=== PATIENT | female | born 1955 | race Caucasian/White ===

== ENCOUNTER 2020-10-13 16:11 | Outpatient (CLI) | payer OTHER, SELFPAY ==
--- NOTE | 2020-10-13 16:30 | MR_ITS ---
WS: [id number] MRI THORACIC SPINE WITHOUT CONTRAST TECHNIQUE: Sagittal T1, T2 and STIR imaging. Axial T2 imaging. Noncontrast imaging obtained. CLINICAL INFORMATION: THORACIC PAIN, LOW BACK PAIN COMPARISON: None. FINDINGS: Mild thoracic curve. Mild thoracic kyphosis. No acute compression. No high-grade central canal stenos is. Cord signal is normal. Mild disc bulging with small central protrusions T12-L1 and L1-L2 with sli ght effacement of the ventral thecal sac. Moderate facet arthropathy lower thoracic spine. Mild to moderate foraminal narrowing right T10-11 and right L1-2. Normal caliber thoracic aorta. Part ially evaluated right hepatic cyst. MR/MR thoracic spin wo con* [id number] IMPRESSION: 1. Mild thoracic curve. Mild thoracic kyphosis. No high-grade central canal na rrowing. 2. Cord signal is normal. 3. Small disc protrusions in the lower thoracic and upper lumbar spine more pr ominent at T12-L1 and L1-L2. Spinal canal is patent. 4. Mild to moderate foraminal narrowing right T10-11 and right L1-2
--- NOTE | 2020-10-13 16:37 | MR_ITS ---
WS: [id number] MRI LUMBAR SPINE NONCONTRAST TECHNIQUE: Sagittal T1, T2 and STIR imaging. Axial T1 and T2 imaging. CLINICAL INFORMATION: THORACIC PAIN, LOW BACK PAIN COMPARISON: None. FINDINGS: Mild lumbar curve. No acute compression. No high-grade central canal stenosis. L1-L2: Mild disc bulging with a small shallow central protrusion. Narrowing subarticular recess bilat erally. Mild facet arthropathy. Mild right greater than left foraminal narrowing. L2-L3: Mild annular bulging with narrowing of the subarticular recess bilaterally. Moderate facet art hropathy. Spinal canal and foramen are patent. L3-L4: Mild annular bulging. Slight effacement of the ventral thecal sac. Spinal canal is patent. For amen are patent. Mild facet arthropathy. L4-L5: Mild annular bulging with slight narrowing of the subarticular recess bilaterally. Encroachmen t traversing L5 nerve roots. Mild right and no significant left foraminal narrowing. L5-S1: Mild disc bulging with osteophytic ridging. Disc desiccation. Mild right greater than left for aminal narrowing. Tiny bilateral renal cysts. Visualized pelvic bony structures: Normal. Paravertebral soft tissues: Normal. MR/MR lumbar spine wo con* [id number] IMPRESSION: 1. Mild lumbar curve. No acute compression. No high-grade central canal stenos is. 2. Shallow broad-based central protrusion L1-2 with slight impingement elayne ing L2 nerve roots bilaterally in the subarticular recess. Mild bilateral diamante inal narrowing. 3. Narrowing of the right L2-3 subarticular recess. 4. Mild disc bulging L4-5 with impingement right subarticular recess and trave rsing right L5 nerve root. Mild right L4-5 foraminal narrowing. 5. Mild right L5-S1 bony foraminal narrowing. 6. Mild to moderate facet arthropathy L4-5.
== END 2020-10-13 16:12 | disposition home or self-care (01) ==
LOC: RADSHAW 16:16
PROVIDERS: PCP Nurse Practitioner; Visit Provider Nurse Practitioner
DX: M47.816 Spondylosis without myelopathy or radiculopathy, lumbar region (principal); M51.26 Other intervertebral disc displacement, lumbar region; M51.24 Other intervertebral disc displacement, thoracic region; M40.294 Other kyphosis, thoracic region
CPT/HCPCS: 72146; 72148

== ENCOUNTER → 2021-09-06 13:48 | Outpatient (BNVA) | payer OTHER, SELFPAY | PROVIDERS: PCP Nurse Practitioner; Referring Provider Nurse Practitioner; Visit Provider Specialist | DX: M67.442 Ganglion, left hand (principal) | CPT/HCPCS: 73130; 99203 ==

== ENCOUNTER 2024-03-21 07:57 | Outpatient (CLI) | payer OTHER, SELFPAY ==
--- NOTE | 2024-03-21 08:00 | US_ITS ---
WS: [id number] RIGHT UPPER QUADRANT ULTRASOUND HISTORY: RIGHT UPPER QUADRANT PAIN COMPARISON: 10/18/2013, CT abdomen 10/18/2013 Liver: 15.7 cm in length. Normal size liver. Hyperechoic nodule in the posterior liver towards the di aphragm measures 1.2 x 0.9 x 0.9 cm. No increased vascularity. No intrahepatic bile duct dilatation. There is an additional area of heterogeneity in the RIGHT lobe of the liver which needs to be further evaluated. Additional area of heterogeneity in the RIGHT lobe of the liver anterior to the kidney. T his heterogeneous mass measures 4.7 x 7.0 x 5.5 cm. There is an separate lobulated component which ex tends more inferiorly measuring 4.3 x 4.8 x 3.6 cm. Portal Vein: Normal hepatopetal flow with monophasic waveform. Gallbladder: Normally distended gallbladder with no stones or wall thickening. CBD: 0.2 cm Pancreas: Atrophy. No mass. Right kidney: 9.4 cm in length. Normal size and echogenicity. No hydronephrosis or mass. Aorta and IVC: Unremarkable abdominal aorta and IVC. No ascites. US/US abdomen limited [id number] IMPRESSION: 1. Hepatic masses. This may be 2 separate hepatic masses or a contiguous lobu lated mass. Masses are within the RIGHT lobe of the liver with the largest comp onent measuring 4.7 x 7.0 x 5.5 cm. Smaller masslike component measures 4.3 x 4 .8 x 3.6 cm. Highly suspicious for primary or metastatic hepatocellular disease . Recommend CT evaluation. CT evaluation should be with hepatic mass protocol. 2. Negative gallbladder.
== END 2024-03-21 07:58 | disposition home or self-care (01) ==
LOC: RAD 07:57
PROVIDERS: PCP Nurse Practitioner; Visit Provider Nurse Practitioner
DX: R10.11 Right upper quadrant pain (principal); R93.2 Abnormal findings on diagnostic imaging of liver and biliary tract
CPT/HCPCS: 76705

== ENCOUNTER 2024-04-03 13:35 | Outpatient (CLI) | payer OTHER, SELFPAY ==
--- NOTE | 2024-04-03 13:40 | CT_ITS ---
WS: [id number] CT ABDOMEN WITH AND WITHOUT CONTRAST HISTORY: HEPATIC MASSES Contiguous single phase 5 mm axial imaging performed to the abdomen. Oral contrast has been provided. Coronal and sagittal reformats are submitted. All CT scans at [facility] use at least one of these dose optimization techniques: automated exposure control; mA and/or kV adjustment per patient size (includes targeted exams where dose is matched to clinical indication); or iterative reconstruct ion. IV CONTRAST: Omnipaque 350; 100 mL IV. Oral contrast: No DLP: 692.90 mGy.cm COMPARISON: 10/18/2013, ultrasound 03/21/2024 Lower thorax: Linear areas of scarring at the lung bases. Heart is normal size. Small hiatal hernia. Liver/biliary system: Abnormal RIGHT lobe of the liver. There is a large lobulated mass displacing th e vessels in the RIGHT lobe of the liver. This may be two separate masses which are inseparable. The entire mass measures 7.8 x 6.5 x 7.7 cm. Mass is of low attenuation on the noncontrast study. On ramsey y arterial phase imaging there is peripheral enhancement. In some portions of the mass there is perip heral scattered puddling and additional more focal confluent intense enhancement within a portion of the lesion. There is partial filling in on the delayed imaging. The center appears necrotic. There is also central scarring. There is an additional smaller 0.7 mm lesion which does not nearly completel y fill in on delayed imaging. Gallbladder: Slightly contracted gallbladder. Pancreas: Normal size pancreas and pancreatic duct. No adjacent inflammation. Spleen: Normal size spleen. No mass or infarct. Adrenal glands: Normal. Right kidney: RIGHT kidney is being displaced medially by the RIGHT hepatic mass. No renal obstructio n. Left kidney: Cortical cyst upper pole. Otherwise negative. Aorta: Mild atherosclerosis with no aneurysm. Lymphadenopathy: None. Free fluid: None. GI tract: Stomach is mildly distended with fluid. Constipation within the visualized colon through th e abdomen. Abdominal wall: Unremarkable abdominal wall. No hernia. Visualized osseous structures: Unremarkable. CT/CT abdomen wo/w con [id number] IMPRESSION: 1. Large heterogeneous mass with peripheral enhancement in the RIGHT lobe of t he liver. This may be two adjacent masses which are now confluent. The entire m ass measures 7.8 x 6.5 x 7.7 cm. There is variable, pronounced peripheral enhan cement with central necrosis and a central scar. There is an additional smalle r mass towards the diaphragm which is subcentimeter and does not fill in on del ayed imaging. Differential includes large HCC, metastatic site or atypical cave rnous hemangioma. Liver biopsy may be necessary to confirm the diagnosis. Liver biopsy should be performed by interventional radiology. 2. No ascites or adenopathy. 3. RIGHT kidney is being displaced medially by the large hepatic mass. Unsuccessful at contacting Dr. Mccabe to discuss this case.
[2024-04-03 14:52] LABS: Blood Urea Nitrogen 12 mg/dL (8-23); Glomerular Filtration Rate 82.7 mL/min (90-130)
[2024-04-03] MEDS: iohexol 350 mg/mL 500 mL Btl (per mL) IV (15:07)
== END 2024-04-03 13:36 | disposition home or self-care (01) ==
LOC: RAD 13:36
PROVIDERS: PCP Nurse Practitioner; Visit Provider Nurse Practitioner
DX: R16.0 Hepatomegaly, not elsewhere classified (principal); K72.90 Hepatic failure, unspecified without coma; R93.2 Abnormal findings on diagnostic imaging of liver and biliary tract; J98.4 Other disorders of lung; K44.9 Diaphragmatic hernia without obstruction or gangrene; N28.1 Cyst of kidney, acquired; I70.0 Atherosclerosis of aorta; R93.421 Abnormal radiologic findings on diagnostic imaging of right kidney; R93.3 Abnormal findings on diagnostic imaging of other parts of digestive tract; K59.00 Constipation, unspecified
CPT/HCPCS: 74170; 82565; 84520

== ENCOUNTER 2024-07-10 11:46 | Outpatient (CLI) | payer OTHER, SELFPAY ==
--- NOTE | 2024-07-10 11:53 | CT_ITS ---
WS: [id number] CT CHEST, ABDOMEN AND PELVIS WITH AND WITHOUT CONTRAST HISTORY: History of liver cancer. Follow-up. TECHNIQUE: Noncontrast imaging is first performed through the abdomen. Contiguous 5 mm axial imaging performed through the chest, abdomen and pelvis. Multiphase imaging performed of the liver. IV contrast, oral contrast has been provided. Coronal and sagittal reformats chest. Coronal and sagittal reformats through the abdomen and pelvis. All CT scans at [facility] use at least one of these dose optimization techniques: automated exposure control; mA and/or kV adjustment per patient size (includes targeted exams where dose is matched to clinical indication); or iterative reconstruction. CONTRAST: Omnipaque 350; 100 mL IV. DLP: 597.28 mGy.cm COMPARISON: 04/03/2024. Chest CT: Linear thin scarring atelectasis at the lung bases. No pulmonary mass, nodule or pneumonia. Normal size pulmonary artery. Mild atherosclerosis aorta. Heart size is slightly enlarged. No mediastinal or hilar adenopathy. No axillary lymph nodes. Bilateral breast implants with capsular calcifications. Very small hiatal hernia. Mild increase in thoracic kyphosis. Abdomen CT: Large necrotic, peripherally enhancing mass centered in the RIGHT lobe of the liver. Mass measures 9.1 x 8.2 x 8.6 cm. Mass has increased in size since 04/03/2024. There is greater bulging of the medial RIGHT lobe of the liver now contacting the upper pole of the RIGHT kidney. There is a new hypodensity along the surface of the inferior RIGHT lobe of the liver which is subcentimeter. Mass is splaying and encasing the portal veins. Main portal vein is patent. SMV is normal. Normal size spleen and normal attenuation. Slightly contracted gallbladder. Unremarkable pancreas and adrenal glands. Too small to characterize cortical hypodensities RIGHT kidney and upper pole LEFT kidney. No renal obstruction. Atherosclerosis aorta. No adenopathy or ascites. Pelvic CT: No free fluid in the pelvis. Uterus is not identified and may've been removed. Urinary bladder is negative. No adenopathy. No lytic or blastic lesions. Small bone island in the LEFT sacrum. CT/CT abdpel wo/w [id number] IMPRESSION: 1. Enlarging necrotic mass centered in the RIGHT lobe of the liver now measuri ng 9.1 x 8.2 x 8.6 cm. Mass is displacing the portal veins and encasing the por yulisa veins and hepatic veins but there is no obvious obstruction identified. 2. Possible additional metastatic site along the superficial, subcapsular live r surface. 3. No ascites. 4. No adenopathy in the chest, abdomen or pelvis. 5. No adrenal mass. 6. No metastatic nodules within the lungs.
[2024-07-10 12:26] LABS: Blood Urea Nitrogen 11 mg/dL (8-23); Glomerular Filtration Rate 70.9 mL/min (90-130)
[2024-07-10] MEDS: iohexol 350 mg/mL 500 mL Btl (per mL) IV (12:55)
== END 2024-07-10 11:47 | disposition home or self-care (01) ==
PROVIDERS: PCP Nurse Practitioner; Visit Provider Surgery
DX: R93.3 Abnormal findings on diagnostic imaging of other parts of digestive tract (principal); K76.89 Other specified diseases of liver; R93.2 Abnormal findings on diagnostic imaging of liver and biliary tract; J98.11 Atelectasis; I70.0 Atherosclerosis of aorta; Z98.82 Breast implant status; K44.9 Diaphragmatic hernia without obstruction or gangrene; M40.294 Other kyphosis, thoracic region; R93.7 Abnormal findings on diagnostic imaging of other parts of musculoskeletal system
CPT/HCPCS: 71260; 74178; 82565; 84520

== ENCOUNTER 2025-03-07 08:21 | Outpatient (CLI) | payer OTHER, SELFPAY ==
--- NOTE | 2025-03-07 08:27 | US_ITS ---
WS: [id number] Abdomen ultrasound, Clinical Data: FOLLOW UP ON LIVER MASS Comparison: None. Findings: The pancreas shows no cyst, pseudocyst or evidence of pancreatitis. The central liver mass has enlarged and now measures 7.8 x 8.8 x 9.9 cm. The echogenicity is heterogeneous. The liver overall measures 18.5 cm. The main portal vein shows hepatopetal flow and measures 0.5 cm. The gallbladder has no stones or sludge. The wall measures 0.1 cm with no pericholecystic fluid. The common bile duct is 0.2 cm and no intraductal abnormalities are noted. The right kidney is 9.1 cm. No cysts, masses or hydronephrosis is seen. The left kidney is 8.6 cm. No cysts, masses or hydronephrosis is seen. The abdominal aorta is not dilated and the inferior vena cava has normal flow. No vascular abnormalities are seen. The spleen measures 8.6 cm and there are no intrasplenic masses or capsular abnormalities. US/US abdomen complete* [id number] Impression: 1. Enlargement of central hepatic mass to greatest dimension 9.9 cm. 2. Negative pancreas and gallbladder.
== END 2025-03-07 08:22 | disposition home or self-care (01) ==
LOC: RAD 08:22
PROVIDERS: PCP Nurse Practitioner; Visit Provider Nurse Practitioner
DX: Z01.89 Encounter for other specified special examinations (principal); R16.0 Hepatomegaly, not elsewhere classified
CPT/HCPCS: 76700